=== PATIENT | male | born 1985 | race Caucasian/White ===

== ENCOUNTER 2018-04-16 14:23 | Emergency (ER) | payer SELFPAY ==
[2018-04-16] MEDS: DIPHTH/TET/ACEL PERTUSS (ADULT) 0.5 ML VIAL IM* (16:17)
[2018-04-16] MEDS: LIDOCAINE 1% (MPF) 5 ML VIAL INFIL (16:18)
[2018-04-16] MEDS: HYDROCODONE/APAP (5/325) TAB PO (16:18)
== END 2018-04-16 16:44 | disposition home or self-care (01) ==
LOC: FTE 14:23
DX: S81.811A Laceration without foreign body, right lower leg, initial encounter (principal); W26.8XXA Contact with other sharp object(s), not elsewhere classified, initial encounter; W31.1XXA Contact with metalworking machines, initial encounter; Y92.9 Unspecified place or not applicable
CPT/HCPCS: 12004; 90471; 90715; 99283-25

== ENCOUNTER 2018-04-18 09:39 | Emergency (ER) | payer SELFPAY | END 2018-04-18 10:25 | disposition home or self-care (01) | LOC: FTE 09:39 | DX: Z48.01 Encounter for change or removal of surgical wound dressing (principal) | CPT/HCPCS: 99281 ==